=== PATIENT | male | born 1980 | race Caucasian/White ===

== ENCOUNTER 2023-07-21 07:31 | Day surgery (SDC) | payer BC, SELFPAY ==
[2023-07-21] VITALS (7 sets, daily range): BP systolic 117–140; BP diastolic 78–92; PULSE 81–92; RESP 16–18; TEMP 36.3–36.4; O2SAT 94–96; BMI 38.2
[2023-07-21] MEDS: Lactated Ringers 1,000 ML 15 ML IV (08:00)
--- NOTE | 2023-07-21 08:25 | HP.PCM_ITS ---
History and Physical Date of Admission: 07/21/23 Visit Reasons: DIVERTICULITIS Chief Complaint: diverticulitis Allergies No Known Allergies Allergy (Verified 06/14/23 10:23) Medications NK 06/14/23 [History Confirmed 06/14/23] COUNTS INCLUDE 234 BEDS AT THE [facility] Social History (Updated 06/14/23 @ 10:23 by Iris Mckeon) Smoking Status: Never smoker Smokeless tobacco user: chewing tobacco substance use type: does not use HPI HPI HPI: 43-year-old gentleman is being referred by Dr. Junior Guan for surgical consultation regarding diverticular disease. Written compromise surgical consult recommendations will return to him. By report the patient has already had surgical consultation per Dr. Ranjana Martinez at [facility] where the patient was hospitalized August 29, 2022 for acute sigmoid diverticulitis with intramural abscess. I do not have access to his hospital records or discharge summary. By report he was hospitalized for 5 days. I have report of a follow-up CT scan performed September 09, 2022. Acute diverticulitis of the sigmoid colon identified with the previous identified intramural abscess nearly resolved with generalized inflammatory improvement. Hepatic steatosis still noted. On October 20, [address] Lionel Roberts the patient had a colonoscopy. There is felt to be spasm of the sigmoid colon with numerous diverticula. There is felt to be diverticulosis and myochosis. The patient states that in August after discharge that he had a PICC line in place for at least 10 days of IV antibiotics. He then stated that he followed up with a physician house admin of Dr. Ranjana Martinez in the office and was making progress. He states that his stool sample was obtained but he does not know why. He then had the colonoscopy by Dr. Roberts September 2022. Then apparently January 2023 he had a week and a half history of lower abdominal pain. He contacted Dr. Roberts who over the phone wrote him for antibiotics. Apparently somewhere in February 2023 was seen in the office by Dr. Roberts. Recommendations at that time were to consider surgical consultation for resection. The patient states that it does not matter what food he eats whether it is nuts or seeds or popcorn but that he will intermittently feel a discomfort in the left lower quadrant. More recently he feels like something is pushing on his urinary bladder. He denies fever or chills or sweats. He does not think that the extent of his disease was marked with Aleah ink during the time of his colonoscopy. He does sedentary work. He is aware that his weight is actually increasing rather than decreasing. Apparently had a discussion with primary care regarding some of the newer weight loss products but because his local [facility] did not have it he did not pursue the issue. During my physical exam I detected areas of for ankylosis on the low mid abdomen that is overhanging pannus. He states that he frequently has ingrown hairs. He does not recall having an episode of cellulitis or MRSA. He thinks this is irritation to his slacks on his belt He has not been seen by dermatology or infectious disease for that. He has not had any recent laboratory. ROS General General: Yes fatigue; No weight change, appetite, colon cancer, breast cancer or weakness HEENT HEENT: No difficulty swallowing, eye injury, eye surgery, swollen glands or hoarseness Endo Endocrine: No thyroid disease, diabetes mellitus, thyroid cancer, Hair loss, heat intolerance or cold intolerance Skin Skin: No rash or changing moles Musc Musculoskeletal: No back problems, arthritis, rheumatoid arthritis, gout or azalea nt pain Cardio Cardiovascular: No murmur, pacemaker, heart disease, atrial fibrillation, high blood pressure, heart attack, heart stent, palpitations, shortness of breat with exertion or chest pain Psych Psychiatric: No depression, anxiety or hearing voices Resp Respiratory: No shortness of breath, No sleep apnea, No cough, No COPD, No asthma, No emphysema and No wheezing Gastro Gastrointestinal: Yes abdominal pain, No nausea or vomiting, Yes diarrhea, Yes constipation, No blood in stool, No acid reflux, No hemorrhoids, No ulcers, No gallbladder problem and No black,tarry stools Partha Hematologic: No blood thinners, No blood disorders, No bleeding, No anemia and No blood clots Neuro Neurologic: No system reviewed and no additional complaints, except as documented, No as per HPI, No abnormal gait, No abnormal hearing, No abnormal movements, No abnormal speech, No behavioral changes, No burning sensations, No confusion, No convulsions, No disequilibrium, No dizziness, No localized weakness, No frequent falls, No headache(s), No lack of coordination, No loss of vision, No memory loss, Yes numbness, No other visual disturbances, No radicular pain, No restless legs, No sensory deficit, No syncope, Yes tingling, No tremor(s), No weakness and No other Exam Const General: cooperative, comfortable and no acute distress Nutritional Appearance: obese morbidly obese Orientation: alert, awake and oriented x3 HENMT Head: normal to inspection Eyes General: appearance normal, both eyes and all related structures Neck Neck: normal visual inspection Chest Chest palpation & inspection: normal inspection of the chest Resp Effort & Inspection: normal respiratory effort Auscultation: clear to auscultation bilaterally Cardio Rate: regular rate Rhythm: regular rhythm GI Inspection: normal to inspection Palpation: soft and no hepatosplenomegaly Other: Notably overweight, overhanging abdominal pannus, skin lesions inferior midline at belt Musc Cervical Spine: normal cervical lordosis Skin General: no rashes or lesions noted Other: Overlapping abdominal pannus. At the belt line there are several different punctate areas of erythema with diffuse skin irritation Neuro General: patient alert, patient awake and patient oriented x3 Extrem General: normal to inspection and no calf tenderness Psych Appearance: grossly normal Assessment and Plan Assessment and Plan (1) Diverticulosis of colon: Status: Acute Plan: 43-year-old gentleman. By history and presentation he appears to be having ongoing problems with intermittent recurrent bouts of diverticulitis. Because of his body habitus I have concern that some of the lesser bouts of pain that he is having in the left lower quadrant may actually represent a more serious infection that is being buffered by intra-abdominal fat or omentum. The lin mooney's complaint of bladder symptoms suggest the possibility of an evolving [place] vesicular fistula. The patient is aware that his body habitus adds to surgical complexity. He does note ongoing weight gain rather than weight loss. I have asked that he follow back up with primary care to see if some concerted weight loss plan can be addressed The patient has diffuse erythematous with the skin lesions that in the low midline abdominal wall consistent with a irritative from cheilitis. I have offered him infectious disease referral as I have concerned that this may represent MRSA In great detail I have discussed with him the technique of laparoscopic sigmoid colectomy. Based upon his body habitus and the severity of his diverticular disease this for sure would require mobilization of the splenic flexure which could be very technically challenging in him. We discussed the potential for anastomotic leakage or the need for enteric diversion. We discussed potential for laparoscopic approach or hand-assisted laparoscopic approach or even an open approach. I have furthermore suggested to him that visually the extent of his active diverticular disease may be difficult to assess. I propose for him a flexible sigmoidoscopy to inspect the current status of his diverticular disease and Aleah ink tattoo the proximal extent so a more definitive knowledge of the degree of resection could be assessed. He has had an opportunity to ask and have questions answered. I do believe that he is a future candidate for resection because of his chronic recurrent disease. I believe some of his symptoms are being masked due to his body habitus. However in the same light I am recommending to him to try to maximize his medical health with potential for weight loss and treatment of his folliculitis prior to us proceeding. We will not be able to proceed with his current skin contamination. This was an extensive chart review and image review and patient consultation. I appreciate the opportunity of assisting with the surgical care. Copy: Dr. Junior Guan and Dr. Dariusz Diaz M.D., F.A.C.S. I have examined the patient and the H&P has been reviewed. There are no clinical changes since date of exam. Junior Diaz M.D., F.A.C.S.
--- NOTE | 2023-07-21 09:43 | OP.CCLET_ITS ---
07/21/2023 Jesus Nolasco Re : Flexible Sigmoidoscopy procedure for Mike Sabillon Dear Dr. Nolasco This procedure was performed on Friday, July 21, 2023. My impressions and recommendations are as follows: Impressions : - Non-thrombosed internal hemorrhoids and internal hemorrhoids that prolapse with straining, but spontaneously regress to the resting position (Grade II) found on digital rectal exam. - Diverticulosis in the sigmoid colon. Tattooed. At approximately 30 cm at the proximal site of what appeared to be the most severe portion of the diverticulosis with some still mucosal edema Aleah ink tattooing was performed. - No specimens collected. Recommendations : - Use fiber, for example Citrucel, Fibercon, Konsyl or Metamucil. My findings are described in the full procedure note, which is enclosed. If I can be of further assistance, please feel free to contact me at Doctor phone number(s): Work: . Sincerely, Junior Diaz MD 07/21/2023 9:43:11 AM This report has been signed electronically.
--- NOTE | 2023-07-21 09:43 | OP.FLEXSIG_ITS ---
Patient Name: Mike Sabillon Procedure Date: 07/21/2023 9:10 AM Date of : 1980 Age: 43 Procedure: Flexible Sigmoidoscopy Indications: Diverticulitis Providers: Junior Diaz MD Medicines: None Patient Profile: Last Colonoscopy: within the past 6 months. Complications: No immediate complications. Procedure: Pre-Anesthesia Assessment: - Prior to the procedure, a History and Physical was performed, and patient medications and allergies were reviewed. The patient's tolerance of previous anesthesia was also reviewed. The risks and benefits of the procedure and the sedation options and risks were discussed with the patient. All questions were answered, and informed consent was obtained. Prior Anticoagulants: The patient has taken no anticoagulant or antiplatelet agents. ASA Grade Assessment: II - A patient with mild systemic disease. After reviewing the risks and benefits, the patient was deemed in satisfactory condition to undergo the procedure. After obtaining informed consent, the endoscope was passed under direct vision. Throughout the procedure, the patient's blood pressure, pulse, and oxygen saturations were monitored continuously. The colonoscope was introduced through the anus and advanced to the left transverse colon. The flexible sigmoidoscopy was accomplished without difficulty. The patient tolerated the procedure well. The quality of the bowel preparation was good. Scope In: 9:22:26 AM Scope Out: 9:33:36 AM Total Procedure Duration Time 0 hours 11 minutes 10 seconds Findings: The digital rectal exam findings include non-thrombosed internal hemorrhoids and internal hemorrhoids that prolapse with straining, but spontaneously regress to the resting position (Grade II). Pertinent negatives include normal prostate (size, shape, and consistency). Multiple small and large-mouthed diverticula were found in the sigmoid colon. Area was tattooed with an injection of 2 mL of Aleah ink. Impression: - Non-thrombosed internal hemorrhoids and internal hemorrhoids that prolapse with straining, but spontaneously regress to the resting position (Grade II) found on digital rectal exam. - Diverticulosis in the sigmoid colon. Tattooed. At approximately 30 cm at the proximal site of what appeared to be the most severe portion of the diverticulosis with some still mucosal edema Aleah ink tattooing was performed. - No specimens collected. Recommendation: - Use fiber, for example Citrucel, Fibercon, Konsyl or Metamucil. Procedure Code(s): --- Professional --- 58863, Sigmoidoscopy, flexible; with directed submucosal injection(s), any substance Diagnosis Code(s): --- Professional --- K64.1, Second degree hemorrhoids K57.32, Diverticulitis of large intestine without perforation or abscess without bleeding K57.30, Diverticulosis of large intestine without perforation or abscess without bleeding CPT copyright 2021 [employer]. All rights reserved. The codes documented in this report are preliminary and upon director process improvement review may be revised to meet current compliance requirements. Junior Diaz MD 07/21/2023 9:43:11 AM This report has been signed electronically. Number of Addenda: 0 Note Initiated On: 07/21/2023 9:10 AM
== END 2023-07-21 10:14 | disposition home or self-care (01) ==
LOC: EN 07:32 → AC 07:34
PROVIDERS: PCP Preventive Medicine Occupational Medicine; Referring Provider Preventive Medicine Occupational Medicine; Visit Provider Surgery
PROC: 0DJD8ZZ Inspection of Lower Intestinal Tract, Via Natural or Artificial Opening Endoscopic (ICD-10-PCS; CPT 45330; principal; 2023-07-21 08:25)
DX: K57.30 Diverticulosis of large intestine without perforation or abscess without bleeding (principal); E66.01 Morbid (severe) obesity due to excess calories; K64.1 Second degree hemorrhoids; G47.30 Sleep apnea, unspecified; Z87.891 Personal history of nicotine dependence
CPT/HCPCS: 45335; J7120; A4648; J2405